=== PATIENT | female | born 1985 | race Caucasian/White ===

== ENCOUNTER 2016-06-05 22:09 | Emergency (ER) | payer MEDICAID ==
[2010-11-16 02:17] VITALS: BMI 39.0
== END 2016-06-06 00:48 | disposition home or self-care (01) ==
LOC: D.ER 22:09
DX: G43.909 Migraine, unspecified, not intractable, without status migrainosus (principal); F41.9 Anxiety disorder, unspecified; F31.9 Bipolar disorder, unspecified; F60.3 Borderline personality disorder; F43.10 Post-traumatic stress disorder, unspecified

== ENCOUNTER 2016-06-18 19:26 | Emergency (ER) | payer MEDICAID ==
[2010-11-16 02:17] VITALS: BMI 39.0
== END 2016-06-18 22:07 | disposition home or self-care (01) ==
LOC: D.ER 19:26
DX: G43.909 Migraine, unspecified, not intractable, without status migrainosus (principal); F41.9 Anxiety disorder, unspecified; F31.9 Bipolar disorder, unspecified; F60.3 Borderline personality disorder; F43.10 Post-traumatic stress disorder, unspecified; F45.9 Somatoform disorder, unspecified